=== PATIENT | female | born 1960 | race Two or more races ===

== ENCOUNTER 2018-07-08 18:27 | Emergency (ER) | payer MEDICAID, OTHER, SELFPAY ==
[~2018-07-08] VITALS: Ht 157.5 cm; Wt 98.4 kg
--- NOTE | 2018-07-08 19:00 | NUR ---
PT IN GOWN, CALL LIGHT WITHIN REACH, FAMILY AT BS. AWAITING CXR READ.
[2018-07-08 19:20] VITALS: BP 128/74
== END 2018-07-08 19:24 | disposition home or self-care (01) ==
LOC: ED 19:05
DX: R07.89 Other chest pain (principal)
CPT/HCPCS: 99283